=== PATIENT | male | born 1975 | race Caucasian/White ===

== ENCOUNTER 2016-10-24 17:25 | Emergency (ER) | payer OTHER ==
[~2016-10-24] VITALS: Ht 177.8 cm; Wt 108.9 kg
[2016-10-24] MEDS ORDERED: ESCI10TA2 (17:44)
[2016-10-24] MEDS ORDERED: TEST200I14 (17:44)
[2016-10-24] MEDS ORDERED: NORT75CA2 (17:44)
[2016-10-24] MEDS ORDERED: TOPI25TA5 (17:44)
[2016-10-24 19:00] VITALS: BP 141/97
--- NOTE | 2016-10-24 19:28 | REP ---
CT HEAD WITHOUT CONTRAST: REASON: Headache. History of repeated injuries. COMPARISON: 06/05/2016 TECHNIQUE: 4.5 mm contiguous transaxial sections were obtained from the skull base to the cerebral convexities with thin cuts through the posterior fossa without the administration of intravenous contrast. FINDINGS: The ventricles and sulci are consistent with the patient's age. There are no extra-axial fluid collections. There is no mass effect. The deep cerebral white matter is consistent with the patient's age. The orbital and petrous structures, cerebellopontine angles, and posterior fossa are unremarkable. The sella turcica, cavernous, and paracavernous structures are essentially unremarkable. The visualized portions of the paranasal sinuses and mastoid air cells are clear. Images of the skull base show no gross abnormality. There has been no significant change from the prior exam. IMPRESSION: Essentially unremarkable CT examination of the brain. Signed by Renard Salazar DO 10/24/2016 07:57 P
== END 2016-10-24 19:21 | disposition home or self-care (01) ==
LOC: M ED 18:15
DX: R51 Headache (principal); E29.1 Testicular hypofunction; Z87.820 Personal history of traumatic brain injury; Z90.49 Acquired absence of other specified parts of digestive tract; Z88.5 Allergy status to narcotic agent; Z79.899 Other long term (current) drug therapy

== ENCOUNTER → 2016-11-23 | Outpatient (CLI) | payer OTHER ==
[~2016-11-23] MED LIST: ESCI10TA2; ISOVUE-370 76% 100ML VIAL (Q9967) As Ordered ONE; NORT75CA2; TEST200I14; TOPI25TA5
--- NOTE | 2016-11-24 06:27 | REP ---
Clinical: Anterior abdominal wall bulge/mass. Technique: Axial contrast enhanced images from the lung bases to the pubic symphysis using 100 ml Isovue 370 intravenous contrast material with coronal and sagittal re-formations. Comparison: 02/02/2016. Findings: Lung bases are clear. Visualized heart and pericardium normal. Liver, spleen, pancreas, gallbladder, bilateral adrenal glands and kidneys are normal. The enteric system is without obstruction or acute inflammatory process. Scattered colonic diverticula noted without acute diverticulitis. Evidence for partial resection at the sigmoid level in the left lower quadrant. Normal terminal ileum and appendix identified in the right lower quadrant. Postsurgical changes in the periumbilical subcutaneous tissues with small 2 cm fat containing hernia possibly related to patient's symptoms. No other ventral hernia identified. No inguinal hernias are noted. Pelvis demonstrates normal bladder and age appropriate prostate/seminal vesicles. No ascites. No free air. No adenopathy. Vasculature is normal. Surrounding musculoskeletal structures are intact. Impression: 1. Mild postsurgical changes in the subcutaneous tissues of the anterior abdominal wall midline along with small 2 cm fat containing periumbilical hernia possibly related to patient's symptoms. 2. No further acute intra-abdominal or pelvic pathology appreciated. 3. No further obvious hernia noted. Signed by Alberto Ramirez MD 11/24/2016 06:19 A
== END ==
LOC: M RAD 13:44
PROVIDERS: ATTEND Specialist
DX: K42.9 Umbilical hernia without obstruction or gangrene (principal)
CPT/HCPCS: 74177; Q9967

== ENCOUNTER 2017-02-17 13:39 | Emergency (ER) | payer OTHER ==
[~2017-02-17] VITALS: Ht 177.8 cm; Wt 104.5 kg
[~2017-02-17 13:39] MED LIST changes: -ISOVUE-370 76% 100ML VIAL (Q9967) As Ordered ONE; +TOPI25TA10; -TOPI25TA5
[2017-02-17] MEDS ORDERED: ADACEL/BOOSTRIX VACCINE (DIPHTH/PERTUSS/ACELL/TETANUS)0.5ML SYR (90715) IM ONE (14:30)
[2017-02-17] MEDS ORDERED: LIDOCAINE W/EPINEPHRINE 1% 20ML VIAL SC ONE (14:30)
[2017-02-17] MEDS ORDERED: KEFL500C17 PO (14:55)
[2017-02-17 15:01] VITALS: BP 149/96
== END 2017-02-17 15:20 | disposition home or self-care (01) ==
LOC: M ED 13:39
DX: S81.812A Laceration without foreign body, left lower leg, initial encounter (principal); W26.8XXA Contact with other sharp object(s), not elsewhere classified, initial encounter; Y92.89 Other specified places as the place of occurrence of the external cause; Y93.89 Activity, other specified; Y99.8 Other external cause status; F17.200 Nicotine dependence, unspecified, uncomplicated; Z88.5 Allergy status to narcotic agent; Z79.899 Other long term (current) drug therapy

== ENCOUNTER → 2018-01-04 | Outpatient (CLI) | payer OTHER | LOC: M SLEEP HO 12:24 | DX: G47.30 Sleep apnea, unspecified (principal) | CPT/HCPCS: G0399 ==

== ENCOUNTER → 2020-09-11 | Outpatient (REF) | payer OTHER ==
[~2020-09-11] MED LIST changes: +ESCI10TA16; -ESCI10TA2; +KEFL500C17 PO
[2020-09-11 13:54] LABS: INFLUENZA A AMPLIFICATION NEGATIVE (NEGATIVE); INFLUENZA B AMPLIFICATION NEGATIVE (NEGATIVE)
== END ==
LOC: M LAB REF 12:41
PROVIDERS: ATTEND Physician Assistant
DX: J11.1 Influenza due to unidentified influenza virus with other respiratory manifestations (principal)